=== PATIENT | male | born 2000 | race Two or more races ===

== ENCOUNTER 2020-11-24 20:20 | Emergency (ER) | payer BC, MEDICAID ==
[~2020-11-24] VITALS: Ht 172.7 cm; Wt 70.5 kg
[~2020-11-24 20:20] MED LIST: GUAI120015 PO; PSEU-259 PO
[2020-11-24] MEDS ORDERED: predniSONE 20 mg tablet PO ONE (22:25)
[2020-11-24] MEDS ORDERED: azithromycin 250mg tablet PO ONE (22:25)
[2020-11-24] MEDS ORDERED: ipratropium/albuterol 3ml nebule NEB ONE (22:25)
[2020-11-24] MEDS ORDERED: PRED20TA PO (22:30)
[2020-11-24] MEDS ORDERED: ALBU8HFA PO (22:30)
[2020-11-24] MEDS ORDERED: AZIT-72 PO (22:30)
[2020-11-24 23:02] VITALS: BP 129/79
== END 2020-11-24 23:03 | disposition home or self-care (01) ==
LOC: ER 20:21
DX: J20.9 Acute bronchitis, unspecified (principal); J45.909 Unspecified asthma, uncomplicated; R06.02 Shortness of breath; Z79.2 Long term (current) use of antibiotics; Z79.899 Other long term (current) drug therapy
CPT/HCPCS: 71045; 94640; 99283; J7512; 94760